=== PATIENT | male | born 1980 | race Caucasian/White ===

== ENCOUNTER 2016-07-09 16:02 | Emergency (ER) | payer SELFPAY ==
[~2016-07-09] VITALS: Ht 193 cm; Wt 117.0 kg
[~2016-07-09 16:02] MED LIST: AMOX500C PO
[2016-07-09 16:06] VITALS: BP 138/86; PULSE 63; RESP 12; TEMP 98; O2SAT 93
--- NOTE | 2016-07-09 16:11 | PD ---
HPI . possible abscess neck Chief Complaint: Skin Problem Time Seen by Provider: 16:11 Travel History International Travel<30 days: No Contact w/Intl Traveler<30days: No Traveled to known affect area: No History of Present Illness HPI 35-year-old male here with complaints of a possible abscess to his neck. Patient was seen about a year ago with similar issues. He tells me that it's the same area that has become inflamed again. He reports a history of recurrent bumps dispersed around his body that he is having laser surgery for in the past. He denies any fever or chills. He does admit to some pain and tenderness around this area. Has been trying to use warm compresses to have a form to a head, but it has not completely done so. 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) Allergies-Medications (Allergen,Severity, Reaction): Coded Allergies: Neurontin (Verified Allergy, Severe, [facility] LIKE [place], 07/09/16) Tegretol (Verified Allergy, Severe, [place] [employer] [place], 07/09/16) Reported Meds & Prescriptions Reported Meds & Active Scripts Active Ibuprofen 800 Mg Tab 800 Mg PO TID Bactrim DS (Sulfamethoxazole-Trimethoprim) 800-160 Mg Tab 1 Tab PO BID Amoxicillin 500 Mg Cap 500 Mg PO TID Review of Systems General / Constitutional: No: Fever Eyes: No: Visual changes HENT: No: Headaches Cardiovascular: No: Chest Pain or Discomfort Respiratory: No: Shortness of Breath Gastrointestinal: No: Abdominal Pain Genitourinary: No: Dysuria Musculoskeletal: No: Pain Skin: No Rash Neurologic: No: Weakness Psychiatric: No: Depression Endocrine: No: Polydipsia Hematologic/Lymphatic: No: Easy Bruising Physical Exam Narrative GENERAL: AAO x 3, no acute distress, Well-nourished, well-developed patient. SKIN: Warm and dry. No visible rashes or bruising. 2.7 cm induration on the anterior-lateral neck. It is firm and not fluctuant. HEAD: Normocephalic and atraumatic. EYES: No scleral icterus. No injection or drainage. ENT: No nasal drainage noted. Airway patent. NECK: Supple, trachea midline. No JVD. CARDIOVASCULAR: Regular rate and rhythm without murmurs, gallops, or rubs. RESPIRATORY: Breath sounds equal bilaterally. No accessory muscle use. No rhonchi or rales. GASTROINTESTINAL: Visual inspection normal EXTREMITIES: No cyanosis or edema. BACK: Nontender without obvious deformity. No CVA tenderness. PSYCH: AAO x 3, normal affect. Data Data Last Documented VS Vital Signs Date Time Temp Pulse Resp B/P Pulse Ox O2 Delivery O2 Flow Rate FiO2 07/09/16 16:06 98.0 63 12 138/86 93 MDM Medical Decision Making Medical Screen Exam Complete: Yes Emergency Medical Condition: Yes Medical Record Reviewed: Yes Differential Diagnosis folliculitis, cellulitis, less likely abscess Narrative Course 35-year-old male here with complaints of a possible abscess to his neck. Patient was seen about a year ago with similar issues. He tells me that it's the same area that has become inflamed again. He reports a history of recurrent bumps dispersed around his body that he is having laser surgery for in the past. He denies any fever or chills. He does admit to some pain and tenderness around this area. Has been trying to use warm compresses to have a form to a head, but it has not completely done so. Patient seen and examined. He appears to have a folliculitis and cellulitis. There is no definitive abscess formation. I've explained to him that he can continue to use warm compresses and if this area turns into a head, he can return for incision and drainage. I'll provide him with a course of antibiotics. I have also given him Ibuprofen 800 per his requests. I discussed that shaving is likely the cause of his problem. Recommend follow-up with his primary care provider. Patient verbalized understanding of instructions, questions were answered, and thanked me for their care. I advised them if their condition worsens, please return to the nearest emergency room for further care. Diagnosis Primary Impression: Folliculitis Additional Impression: Cellulitis Qualified Code: L03.221 - Cellulitis of neck Patient Instructions: Cellulitis (ED), Folliculitis (ED), General Instructions Additional Instructions: Try to use warm compresses to see if this area forms into head. If it does you can come back for us to drain it. Please return to emergency department if your symptoms return or worsen. Follow up with your primary care provider. Take medications as prescribed. Med/Other Pt SpecificInfo: Prescription(s) given Scripts Ibuprofen 800 Mg Tvy530 Mg PO TID #21 TAB Prov:Robby Jackson MD 07/09/16 Sulfamethoxazole-Trimethoprim (Bactrim DS)800-160 Mg Tab1 Tab PO BID #20 TAB Prov:Robby Jackson MD 07/09/16 Disposition: 01 DISCHARGE HOME Condition: Stable Myrna Martinez Jul 09, 2016 16:11
[2016-07-09] MEDS ORDERED: IBUP800T23 PO (16:22)
[2016-07-09] MEDS ORDERED: BACT800T5 PO (16:22)
== END 2016-07-09 16:50 | disposition home or self-care (01) ==
LOC: NEPK 16:02
DX: L73.9 Follicular disorder, unspecified (principal); L03.221 Cellulitis of neck; F17.210 Nicotine dependence, cigarettes, uncomplicated
CPT/HCPCS: 99283